=== PATIENT | male | born 1940 | race Caucasian/White ===

== ENCOUNTER → 2018-03-18 | Day surgery (SDC) | payer MEDICARE, OTHER ==
[~2018-03-18] MED LIST: ACEB200C PO; ALEN70TA3 PO; ALIR75PE SQ; AMLO5TAB10 PO; APIX5TAB PO; CITA10TA4 PO; CRESTOR20 MG PO; DOFE500C PO; FENO135C PO; FEXO180T16 PO; FINA5TAB4 PO; FLUT1DIS3 IH; IV RINGERS,LACTATED 1000ML 1,000 ML IV SCH; LEVO125T5 PO; LIDOCAINE 1% PF 2 ML VIAL. ID PRN; MESA0.372 PO; METF500T16 PO; MIDAZOLAM HCL/PF 2 MG/2 ML VIAL. IV PRN; NITR0.4T SL; PANT20TA2 PO; PROPOFOL 20 ML IV ONE; RANO500T2 PO; SIME125C65 PO; TAMS0.4C2 PO; VALS1TAB22 PO; XOPENEX HFA15 GM IH; XOPENEX1.25 MG/3 IH; fentaNYL PF VIAL 100 MCG/2 ML VIAL IV PRN
[2018-03-18 13:05] VITALS: BP 144/65
--- NOTE | 2018-03-22 17:09 | PATHOLOGY ---
[facility] Accession Number: [id number] . 01 Material submitted: . DISTAL ESOPHAGUS BIOPSY . 01 Clinical history: . History of Griffith's . 02 Diagnosis: Esophageal biopsies, distal esophagus: - Segments of hyperplastic squamous esophageal mucosa consistent with reflux esophagitis. [facility]/03/22/2018 . 02 Comment: Sections of the distal esophageal biopsy reveal segments of focally tangentially oriented, hyperplastic squamous esophageal mucosa. The findings are consistent with reflux esophagitis. There is no evidence of Griffith's change, dysplasia, or malignancy. (JPM:[facility] 03/22/2018) . 02 Electronically signed: . Nicolás Dawson MD, Pathologist NPI- [id number] . 01 Gross description: . The specimen is received in formalin, labeled "Edvin Gray, distal esophagus biopsy". Received are three segments of pale robin soft tissue ranging in size from 0.5 to 0.7 cm in maximum dimensions. The specimen is submitted entirely in cassette A1. ([facility]; 03/19/2018) QAC/QAC . 02 Pathologist provided ICD-10: K21.0 . 02 CPT . 911375 Specimen Comment: A courtesy copy of this report has been sent to Specimen Comment: [phone], . Specimen Comment: Report sent to and Performed at: 01 [facility] [address], [place] [id number] MD Maximiliano Kendrick MD Phone: [phone] Performed at: [address] [facility] [address] [place], [place] [id number] MD Nicolás Dawson MD Phone: [phone]
== END | disposition home or self-care (01) ==
LOC: SURG 10:39
PROVIDERS: ATTEND Internal Medicine Gastroenterology
DX: K22.70 Barrett's esophagus without dysplasia (principal); K29.50 Unspecified chronic gastritis without bleeding; F32.9 Major depressive disorder, single episode, unspecified; K21.9 Gastro-esophageal reflux disease without esophagitis; I11.9 Hypertensive heart disease without heart failure; G47.30 Sleep apnea, unspecified; E03.9 Hypothyroidism, unspecified; N40.0 Benign prostatic hyperplasia without lower urinary tract symptoms; E11.9 Type 2 diabetes mellitus without complications; E78.00 Pure hypercholesterolemia, unspecified; Z88.8 Allergy status to other drugs, medicaments and biological substances; Z86.010 Personal history of colon polyps; Z80.0 Family history of malignant neoplasm of digestive organs; Z72.89 Other problems related to lifestyle; Z79.899 Other long term (current) drug therapy; Z79.84 Long term (current) use of oral hypoglycemic drugs; Z90.49 Acquired absence of other specified parts of digestive tract; Z95.0 Presence of cardiac pacemaker; Z90.79 Acquired absence of other genital organ(s); Z98.52 Vasectomy status; Z98.890 Other specified postprocedural states
CPT/HCPCS: 43239; J2704; 88305